=== PATIENT | female | born 1975 | race Caucasian/White ===

== ENCOUNTER 2016-09-09 14:14 | Outpatient (CLI) | payer MEDICARE ==
[2014-04-27 21:22] VITALS: BP 154/103
== END 2016-09-09 14:15 ==
LOC: LABRHC 14:14
PROVIDERS: ATTEND Family Medicine
DX: Z01.419 Encounter for gynecological examination (general) (routine) without abnormal findings (principal)
CPT/HCPCS: 87491; 87591; G0143; 88148

== ENCOUNTER → 2017-03-11 | Outpatient (CLI) | payer MEDICARE ==
[2014-04-27 21:22] VITALS: BP 154/103
== END ==
LOC: LABRHC 16:59
PROVIDERS: ATTEND Physician Assistant
DX: N89.8 Other specified noninflammatory disorders of vagina (principal)
CPT/HCPCS: 87491; 87591

== ENCOUNTER 2017-05-16 23:22 | Emergency (ER) | payer MEDICARE ==
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
[2017-05-16] MEDS ORDERED: HYDROcodone /APAP 5/325 1 EACH TABLET PO ONE (23:48)
[2017-05-16] MEDS ORDERED: KETOROLAC TROMETHAMINE 60 MG/2 ML VIAL ONE (23:54)
[2017-05-16] MEDS ORDERED: KETOROLAC TROMETHAMINE 60 MG/2 ML VIAL IM ONE (23:54)
[2017-05-16 23:56] VITALS: BP 161/98
== END 2017-05-17 00:05 | disposition home or self-care (01) ==
LOC: ED 23:22
DX: S39.012A Strain of muscle, fascia and tendon of lower back, initial encounter (principal); X58.XXXA Exposure to other specified factors, initial encounter; Y93.9 Activity, unspecified; Y99.9 Unspecified external cause status
CPT/HCPCS: A9270; J1885; 96372; 99283

== ENCOUNTER 2019-07-06 09:59 | Outpatient (CLI) | payer BC, MEDICARE ==
[2019-07-06 10:15] LABS: BASOPHILS % 0.4 % (0.0-1.5); NEUTROPHILS # 4.6 # k/uL (1.4-7.7)
[2019-07-06 11:13] LABS: eGFR (Non-African) > 60
== END 2019-07-06 10:05 ==
LOC: LAB 09:59
PROVIDERS: ATTEND Family Medicine
DX: I10 Essential (primary) hypertension (principal); R63.5 Abnormal weight gain
CPT/HCPCS: 36415; 80053; 84443; 85025